=== PATIENT | female | born 1985 ===

== ENCOUNTER 2023-02-06 09:54 | Outpatient (AMB) | payer OTHER, SELFPAY ==
--- NOTE | 2023-02-06 09:57 | A.OFFVIS_ITS ---
Intake VS Expanded 02/06/23 10:02 02/14/23 14:40 Height 5 ft 7 in 5 ft 7 in Weight 251 lb 12.286 oz 252 lb BMI 39.4 39.5 Intake Visit Reasons: Obesity-CONFIRMED HPI Nutrition Presentation Details Pt presents for MNT for obesity.The Pt was referred by Dr. Siria Pearce from [facility] Choosing lactose free milk Pt reports having hypothyroidism. Pt reports having tried weight loss in the past and reached 220 lbs however not able to main diet restrictions. Pt B: hash brown/hankins or oatmeal, coffee L: skips D: rice/beans/ meat, water or pasta/ground beef or sausage/shrimp, or chicken , salad or spam, fish : 0-2 m/month fruits/day: 0/d vegetables: 3-4 /wk milk : choosing lactose free milk , eating out : 0-1x/wk physical activity ETOH/smoking : denies take a multivi frances for hair and nails YHX-Dugioxs-Zd.Jeor Equation Height 5 ft 7 in Weight 252 lb Resting Metabolic Rate 1872.33 Calculated Activity Level Mild Activity Calories Needed to Maintain Weight 2574.45 Diagnosis Nutrition problem #1 excessive energy intake and unintended weight loss As related to (etiology) #1 diagnosis As evidenced by (sign/symptom) #1 high BMI (39.4 on 01/2023) Monitoring/Goals Nutrition problem monitoring level of knowledge/skill and weight Learning/Education Readiness to learn good Stages of change preparation Educational materials provided Yes Most Recent Diabetes Results: No Data to Display Assessment & Plan Assessment & Plan (1) Obesity (BMI 30-39.9): Code(s): E66.9 - Obesity, unspecified Plan: wt: 114 kg Est kcal needs as per MSJ: 2570 (40% carb, 30% protein/fat) Est fluid needs as per 25-30 ml/d: 2850 -3420 Est prot per day as per 1 g/kg bw: 114 Recommend fiber intake : 8-10 g per day and gradually increase to 25-28 g per day for women and 35-38 g for men or as tolerated Recommend sodium intake per day : less than 2000 mg Educated patient on: ( R = reviewed V = verbalizes understanding N/R = needs review N/A = not applicable * Food sources of carbohydrate, adequate serving sizes and its role in various health conditions: R * Differences between complex carbohydrates a simple carbohydrates, role of fiber in diet: R * Differences between types of fats and role in diet (mono on saturated fat fatty acids, saturated fatty acids, trans fats): R basic * Food sources of sodium in salt and healthy modifications for heart health in kidney health: R V R/V * Vitamins and minerals: R * Healthy plate method concept: R V * Physical activity: Benefits a precaution: R * PCOS diet related concepts : R Patient Instructions: Work on having 3 meals per day , reducing your total carb to less than 80 g at meal, following healthy plate method see meal plan ideas practice mindful eatin gstrategies Coding Level of Care Code Nutr Indiv Intake (77998) Diagnoses Obesity (BMI 30-39.9) E66.9 Time Spent (min) 30
[2023-02-06 10:02] VITALS: BMI 39.4
[2023-02-14 14:40] VITALS: BMI 39.5
== END 2023-02-06 10:53 | disposition home or self-care (01) ==
PROVIDERS: PCP Internal Medicine; Visit Provider Dietitian, Registered
DX: E66.9 Obesity, unspecified (principal)

== ENCOUNTER → 2023-02-06 09:54 | Outpatient (BNVA) | payer OTHER, SELFPAY | PROVIDERS: PCP Internal Medicine; Visit Provider Dietitian, Registered | DX: E66.9 Obesity, unspecified (principal); E03.9 Hypothyroidism, unspecified; Z68.39 Body mass index [BMI] 39.0-39.9, adult; Z71.3 Dietary counseling and surveillance | CPT/HCPCS: 97802 ==

== ENCOUNTER 2023-04-11 12:35 | Outpatient (AMB) | payer OTHER, SELFPAY ==
[2023-04-11 12:43] VITALS: BMI 39.4
--- NOTE | 2023-04-11 12:43 | A.OFFVIS_ITS ---
Intake VS Expanded 04/11/23 12:43 Height 5 ft 7 in Weight 251 lb 5.231 oz BMI 39.4 Intake Visit Reasons: Obesity/LVM HPI Nutrition Presentation Details Pt presents for MNT for obesity Pt reports not having started diet modifications physically activity: sedentary- had a fall on Saturday suffered has coccix fracture Most Recent Diabetes Results: No Data to Display Assessment & Plan Assessment & Plan (1) Obesity (BMI 30-39.9): Code(s): E66.9 - Obesity, unspecified Plan: wt: 114 kg Est kcal needs as per MSJ: 2570 (40% carb, 30% protein/fat) Est fluid needs as per 25-30 ml/d: 2850 -3420 Est prot per day as per 1 g/kg bw: 114 Recommend fiber intake : 8-10 g per day and gradually increase to 25-28 g per day for women and 35-38 g for men or as tolerated Recommend sodium intake per day : less than 2000 mg Educated patient on: ( R = reviewed V = verbalizes understanding N/R = needs review N/A = not applicable * Food sources of carbohydrate, adequate serving sizes and its role in various health conditions: R * Differences between complex carbohydrates a simple carbohydrates, role of fiber in diet: R * Differences between types of fats and role in diet (mono on saturated fat fatty acids, saturated fatty acids, trans fats): R basic * Food sources of sodium in salt and healthy modifications for heart health in kidney health: R V R/V * Vitamins and minerals: R * Healthy plate method concept: R V * Physical activity: Benefits a precaution: R * PCOS diet related concepts : R Patient Instructions: Resume 3 meals and 2 snack per day following healthy plate method, Include water with meals and snacks as you include more fiber to prevent constipation Coding Level of Care Code Nutr Indiv Subseq (84581) Diagnoses Obesity (BMI 30-39.9) E66.9 Time Spent (min) 25
== END 2023-04-11 13:05 | disposition home or self-care (01) ==
PROVIDERS: PCP Internal Medicine; Visit Provider Dietitian, Registered
DX: E66.9 Obesity, unspecified (principal)

== ENCOUNTER → 2023-04-11 12:35 | Outpatient (BNVA) | payer OTHER, SELFPAY | PROVIDERS: PCP Internal Medicine; Visit Provider Dietitian, Registered | DX: E66.9 Obesity, unspecified (principal); Z86.39 Personal history of other endocrine, nutritional and metabolic disease | CPT/HCPCS: 97803 ==

== ENCOUNTER 2023-05-23 12:50 | Outpatient (AMB) | payer OTHER, SELFPAY ==
[2023-05-23 13:17] VITALS: BMI 39.9
--- NOTE | 2023-05-23 13:17 | A.OFFVIS_ITS ---
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 Most Recent Diabetes Results: No Data to Display Assessment & Plan Assessment & Plan (1) Obesity (BMI 30-39.9): Code(s): E66.9 - Obesity, unspecified Plan: wt: 114 kg , Est kcal needs as per MSJ: 2570 (40% carb, 30% protein/fat) Est fluid needs as per 25-30 ml/d: 2850 -3420 Est prot per day as per 1 g/kg bw: 114 Recommend fiber intake : 8-10 g per day and gradually increase to 25-28 g per day for women and 35-38 g for men or as tolerated Recommend sodium intake per day : less than 2000 mg Educated patient on: ( R = reviewed V = verbalizes understanding N/R = needs review N/A = not applicable * Food sources of carbohydrate, adequate serving sizes and its role in various health conditions: R * Differences between complex carbohydrates a simple carbohydrates, role of fiber in diet: R * Differences between types of fats and role in diet (mono on saturated fat fatty acids, saturated fatty acids, trans fats): R basic * Food sources of sodium in salt and healthy modifications for heart health in kidney health: R V R/V * Vitamins and minerals: R * Healthy plate method concept: R V * Physical activity: Benefits a precaution: R * PCOS diet related concepts : R Patient Instructions: Choose yogurt bars (100) as snack Include foods with probiotic and prebiotics engage in 10 minutes of physical activity additional per day Coding Level of Care Code Nutr Indiv Subseq (32523) Diagnoses Obesity (BMI 30-39.9) E66.9 Time Spent (min) 30
== END 2023-05-23 13:42 | disposition home or self-care (01) ==
PROVIDERS: PCP Internal Medicine; Visit Provider Dietitian, Registered
DX: E66.9 Obesity, unspecified (principal)

== ENCOUNTER → 2023-05-23 12:50 | Outpatient (BNVA) | payer OTHER, SELFPAY | PROVIDERS: PCP Internal Medicine; Visit Provider Dietitian, Registered | DX: E66.9 Obesity, unspecified (principal); Z68.39 Body mass index [BMI] 39.0-39.9, adult | CPT/HCPCS: 97803 ==